=== PATIENT | male | born 1965 | race Caucasian/White ===

== ENCOUNTER 2016-04-03 04:36 | Emergency (ER) | payer OTHER ==
[~2016-04-03] VITALS: Ht 165.1 cm; Wt 65.5 kg
[~2016-04-03 04:36] MED LIST: ANTIBIOTIC PO
[2016-04-03 04:41] VITALS: BP 142/99
== END 2016-04-03 05:50 | disposition home or self-care (01) ==
LOC: EMS 04:37
DX: R33.9 Retention of urine, unspecified (principal)
CPT/HCPCS: 51702; 99284

== ENCOUNTER 2016-04-26 10:48 | Emergency (ER) | payer OTHER ==
[~2016-04-26] VITALS: Ht 154.9 cm; Wt 65.5 kg
[2016-04-26] MEDS ORDERED: DOCU250C91 PO (11:05)
[2016-04-26 11:15] VITALS: BP 135/91
[2016-04-26 11:30] LABS: APPEARANCE,URINE TURBID (CLEAR); GLUCOSE, URINE (UA) NEGATIVE (NEGATIVE); KETONES,URINE NEGATIVE (NEGATIVE); LEUKOCYTE ESTERASE ,URINE MODERATE (NEGATIVE); OCCULT BLOOD,URINE LARGE (NEGATIVE); PH,URINE 7.5 (5.0-8.0); PROTEIN,URINE POS 1+ (NEGATIVE)
[2016-04-26 11:38] LABS: AMORPHOUS SEDIMENT,UR Many /LPF (None Seen); RBC,URINE 51-100 /HPF (0-2); SQUAMOUS EPITHELIAL CELL,UR Few /LPF (None Seen)
== END 2016-04-26 12:08 | disposition home or self-care (01) ==
LOC: EMS 10:49
DX: N39.0 Urinary tract infection, site not specified (principal)
CPT/HCPCS: 87086; 99284